=== PATIENT | female | born 1950 | race Caucasian/White ===

== ENCOUNTER 2018-08-11 07:01 | Day surgery (SDC) | payer MEDICARE ==
[~2018-08-11] VITALS: Ht 160 cm; Wt 59.4 kg
[~2018-08-11 07:01] MED LIST: ATOR-2 PO; CHOL5000 PO; CYCL-259 PO; LISI1TAB5 PO; LISI2.5T PO; SIMV40TA3 PO; TRAZ50TA66 PO
[2018-08-11] MEDS ORDERED: LIDOCAINE-MPF 1%, 5ML ONE ×4 (07:21→11:10)
[2018-08-11 07:41] VITALS: BP 122/77
[2018-08-11] MEDS ORDERED: SODIUM CHLORIDE 0.9% 1,000 ML IV SCH (07:44)
[2018-08-11] MEDS ORDERED: VISIPAQUE 270 MG/ML, 50ML BOTTLE ONE (10:00)
[2018-08-11] MEDS ORDERED: LIDOCAINE 1%, 20ML ONE (10:27)
[2018-08-11] MEDS ORDERED: FENTANYL PF 100 MCG/2ML ONE (10:32)
[2018-08-11] MEDS ORDERED: HEPARIN 1,000 UNITS/ML, 10ML ONE (10:32)
[2018-08-11] MEDS ORDERED: MIDAZOLAM 1 MG/ML, 5ML ONE (10:32)
[2018-08-11] MEDS ORDERED: PROTAMINE SULFATE 10 MG/ML, 5ML ONE (10:32)
[2018-08-11] MEDS ORDERED: NITROGLYCERIN 5 MG/ML, 10ML ONE (10:55)
[2018-08-11] MEDS ORDERED: CLOPIDOGREL 300 MG TABLET PO ONE (12:30)
== END 2018-08-11 13:35 | disposition home or self-care (01) ==
LOC: OUT 07:01
PROVIDERS: ATTEND Surgery
DX: I70.213 Atherosclerosis of native arteries of extremities with intermittent claudication, bilateral legs (principal); I10 Essential (primary) hypertension; E78.5 Hyperlipidemia, unspecified; F19.90 Other psychoactive substance use, unspecified, uncomplicated; Z87.891 Personal history of nicotine dependence; Z72.89 Other problems related to lifestyle
CPT/HCPCS: 37221; 75630; 99156; 99157; C1725; C1751; C1760; C1769; C1876; J1644; J2250; J2720; J3010; Q9966; J3490

== ENCOUNTER 2018-11-26 14:08 | Emergency (ER) | payer MEDICARE ==
[~2018-11-26] VITALS: Ht 160 cm; Wt 60.2 kg
--- NOTE | 2018-11-26 14:43 | NUR ---
PT REPORTS PAIN DEEP IN THE LEFT ANTERIOR GROIN THAT RADIATES TO THE BUTTOCKS. PAIN IS INTERMITTANT, AND STARTED LAST NIGHT. PT REPORTS SENTATIO NOF ITCHING IN SAME AREA. PAIN RIGHT NOW IS 3/10 IN THE LEFT HIP.
[2018-11-26 14:46] LABS: BASOPHILS # (AUTO) 0.03 x10^3/uL (0-0.1); BASOPHILS % (AUTO) 0 % (0-1); EOSINOPHILS # (AUTO) 0.08 x10^3/uL (0-0.4); EOSINOPHILS % (AUTO) 1 % (1-7); LYMPHOCYTES # (AUTO) 1.84 x10^3/uL (1-3.4); LYMPHOCYTES % (AUTO) 26 % (22-44); MD NO; MEAN CORPUSCULAR HGB CONC 33.8 g/dL (32.4-35.8); MEAN CORPUSCULAR VOLUME 100.6 fL (80-100); MONOCYTES # (AUTO) 0.61 x10^3/uL (0.2-0.8); MONOCYTES % (AUTO) 9 % (2-9); NEUTROPHILS # (AUTO) 4.42 x10^3/uL (1.8-6.8); NEUTROPHILS % (AUTO) 63 % (42-75); PLATELET COUNT 284 x10^3/uL (130-400); RED BLOOD COUNT 3.99 x10^6/uL (3.82-5.3); RED CELL DISTRIBUTION WIDTH 13.9 % (9.6-15.2)
[2018-11-26] MEDS ORDERED: CLOP75TA52 PO (14:47)
--- NOTE | 2018-11-26 14:53 | NUR ---
US TO ROOM TO SEE PT
[2018-11-26 14:56] LABS: ALBUMIN 4.3 g/dL (3.4-5.0); ANION GAP 7 mmol/L (5-15); CALCIUM 9.1 mg/dL (8.5-10.1); CHLORIDE 97 mmol/L (98-107); CREATININE 0.84 mg/dL (0.55-1.02)
[2018-11-26 15:26] LABS: INTERNATIONAL NORMALIZED RATIO 1.02 (0.93-1.1); PROTHROMBIN TIME 10.7 Seconds (9.6-11.5)
[2018-11-26 15:58] VITALS: BP 143/71
== END 2018-11-26 16:00 | disposition home or self-care (01) ==
LOC: ED 15:54
DX: S76.112A Strain of left quadriceps muscle, fascia and tendon, initial encounter (principal); I10 Essential (primary) hypertension; E78.5 Hyperlipidemia, unspecified; Z87.891 Personal history of nicotine dependence; X58.XXXA Exposure to other specified factors, initial encounter; Y93.89 Activity, other specified; Y92.89 Other specified places as the place of occurrence of the external cause; Y99.8 Other external cause status
CPT/HCPCS: 36415; 80048; 82040; 85025; 85610; 85730; 99284